=== PATIENT | male | born 1990 | race African-American/Black ===

== ENCOUNTER → 2018-11-23 | Emergency (ER) | payer OTHER ==
[~2018-11-23] VITALS: Ht 175.3 cm; Wt 72.6 kg
[~2018-11-23] MED LIST: Lidocaine 1% Plain 30 ml INJ ONE; Tetanus/Diptheria/Pertussis IM ONE; ceFAZolin 1gm/50ml Premix 50 ML IV ONE
--- NOTE | 2018-11-23 18:01 | NUR ---
ED Nurse Note: Pt arrives with laceration to his right hand index finger x 2 hours, pt sustained cut while trying to open a can. Arrives with pressure dressing. Pt is A&O x4, V/S stable, in no distress at this time. Tdap administered. IV line established. ERMD at bedside evaluating the pt.
[2018-11-23 18:06] VITALS: BP 142/85
--- NOTE | 2018-11-23 19:10 | NUR ---
ED Nurse Note: Patient resting comfortably with significant other at bedside. Injury site wrapped for transport.
--- NOTE | 2018-11-23 19:16 | NUR ---
HAND-OFF: Report given to CHARITY Sam.
--- NOTE | 2018-11-23 19:23 | NUR ---
Face sheet faxed to [facility].
--- NOTE | 2018-11-23 20:34 | Emergency Room Report ---
History of Present Illness General Chief Complaint: Laceration Source: Patient (ANAM TERRELL) Present Illness HPI The patient is a 28-year-old male brought in by ambulance for right finger laceration which occurred just prior to arrival. 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 He states that he was at home, opening up a can when the lid cut his right index finger. The patient noticed bleeding and immediately applied pressure. Pain is a 3 out of 10 dull ache and does not radiate. He does admit to feeling some numbness to the finger. He denies any other symptoms He is unsure of his last tetanus shot He denies any medical problems (ANAM TERRELL) Allergies: Coded Allergies: PENICILLINS (Verified Allergy, Unknown, 11/23/18) Patient History Past Medical History: see triage record Pertinent Family History: none Reviewed Nursing Documentation: PMH: Agreed; PSxH: Agreed (ANAM TERRELL) Nursing Documentation-PMH Past Medical History: No Stated History (ANAM TERRELL) Review of Systems All Other Systems: negative except mentioned in HPI (ANAM TERRELL) Physical Exam Vital Signs Date Time Temp Pulse Resp B/P (MAP) Pulse Ox O2 Delivery O2 Flow Rate FiO2 11/23/18 17:59 97.3 88 18 99 Room Air 11/23/18 18:06 142/85 Sp02 EP Interpretation: reviewed, normal General Appearance: no apparent distress, alert, GCS 15, non-toxic Head: normocephalic, atraumatic Musculoskeletal: back normal, gait/station normal, decreased range of motion - R index unable to flex Neurologic: alert, oriented x3, responsive, speech normal, sensory deficit - R index finger numbness to radial side Psychiatric: judgement/insight normal, memory normal, mood/affect normal, no suicidal/homicidal ideation Skin: normal color, no rash, warm/dry, well hydrated, laceration - laceration across R index PIPJ palmar surface (ANAM TERRELL) Medical Decision Making PA Attestation Dr. Sanchez is my supervising physician. Patient management was discussed with my supervising physician (ANAM TERRELL) Diagnostic Impression: Primary Impression: Finger laceration involving tendon Qualified Codes: S61.219A - Laceration without foreign body of unspecified finger without damage to nail, initial encounter ER Course The patient is a 28-year-old male brought in by ambulance for right finger laceration which occurred just prior to arrival. Ddx considered include but not limited to fracture, tendon/ligament injury, avulsion, nerve damage PE: NAD R 2nd finger: laceration across R index PIPJ palmar surface. No active bleeding. Extension intact. Unable to flex. Sensation to ulnar side intact. Numbness to radial side. R hand xray shows soft tissue injury only Pt given 1g ancef. He declines pain meds at this time. He is placed on NPO as precaution. Wound is cleaned and dressed. Tetanus shot given He will be transferred to [facility] ER for higher level of care transfer. Dr. Sanchez has spoken with admitting physician. (ANAM TERRELL) ER Course Please see above. Patient examined by me. Agree with treatment plan. Discussed with Dr. Gr at [facility] who accepts for evaluation in their ER. (Moody Sanchez MD) Other X-Ray Diagnostic Results Other X-Ray Diagnostic Results : X-Ray ordered: R hand # of Views/Limited Vs Complete: 3 View, Complete Indication: Pain EP Interpretation: Yes PA Xray: Interpretation reviewed, by supervising MD, and agrees with findings. Interpretation: no dislocation, no soft tissue swelling, no fractures Impression: Other - STS injury only Electronically Signed by: Anam Terrell PA-C (ANAM TERRELL) Other X-Ray Diagnostic Results : Electronically Signed by: STEPHANE documentation reviewed by me and is accurate, Moody Sanchez MD (Moody Sanchez MD) Last Vital Signs Date Time Temp Pulse Resp B/P (MAP) Pulse Ox O2 Delivery O2 Flow Rate FiO2 11/23/18 18:06 97.3 88 18 142/85 99 Room Air Status: improved (ANAM TERRELL) Disposition: XFER SHT-TRM HOSP Condition: Stable Referrals: [facility],REFERRING (PCP) ANAM TERRELL November 23, 2018 20:34 Moody Sanchez MD November 23, 2018 20:40
== END | disposition short-term general hospital (02) ==
LOC: EDBD 18:01 → EMR 18:37
DX: S61.210A Laceration without foreign body of right index finger without damage to nail, initial encounter (principal); Z23 Encounter for immunization; W26.8XXA Contact with other sharp object(s), not elsewhere classified, initial encounter; Y92.009 Unspecified place in unspecified non-institutional (private) residence as the place of occurrence of the external cause; Z88.0 Allergy status to penicillin
CPT/HCPCS: 73130; 90471; 90715; 96365; 99285; J0690; J2001